=== PATIENT | male | born 1960 | race Caucasian/White ===

== ENCOUNTER 2020-07-21 20:43 | Observation (INO) | payer OTHER ==
[~2020-07-21] VITALS: Ht 180.3 cm; Wt 101.2 kg
[2020-07-21 20:47] VITALS: BP 171/124
[2020-07-21] MEDS ORDERED: NS 1000ML 1,000 ML IV STA (20:58)
[2020-07-21] MEDS ORDERED: ZOFRAN IV STA (20:58)
[2020-07-21] MEDS ORDERED: ASPIRIN PO PRN (21:00)
[2020-07-21] MEDS ORDERED: ZOFRAN ONE (21:01)
[2020-07-21] MEDS ORDERED: NS 1000ML 1,000 ML ONE ×2 (21:01→22:18)
[2020-07-21] MEDS ORDERED: ASPIRIN ONE (21:01)
[2020-07-21] MEDS ORDERED: ATIVAN IV STA (21:02)
--- NOTE | 2020-07-21 21:02 | PCM.EKG ---
[facility] Test Date: 2020-07-21 Test Time: 20:39:54 Pat Name: NILSA JASSO Department: Room: 330 Gender: M Box Sorter: KIKE : 1960 Requested By: MARCO ANTONIO MENG Order Number: [id number] Reading MD: Tahmina Meng Measurements Intervals [place] Rate: 98 P: 14 ME: 177 QRS: -66 QRSD: 101 T: 41 QT: 369 QTc: 472 Interpretive Statements Sinus rhythm Left anterior fascicular block Abnormal R-wave progression, early transition Baseline wander in lead(s) V2,V6 No previous ECG available for comparison Electronically Signed On 07-24-2020 7:12:09 CDT by Tahmina Meng Please click the below link to view image of tracing.
--- NOTE | 2020-07-21 21:06 | ER.PDOC ---
General Chief Complaint: Chest Pain-Cardiac Nature Stated Complaint: CHEST PAIN Time seen by MD: 21:01 Source: patient Exam Limitations: no limitations History of Present Illness Initial Comments Patient c/o intermittent chest pain x 2 weeks. Pain is associated with palpitations (racing heart), light-headedness and nausea. At worse, pain is 7- 10. At this moment pain is gone, relieved by vomiting. Timing/Duration: 1 hour, intermittent (x 2 weeks), resolved prior to arrival Severity/Quality: moderate, severe, aching Radiation: arms (left) Activities at Onset: none Prior CP/Workup: No Prior Chest Pain, No Prior Cardiac Workup Nitro Today/Relief: No Nitro Taken Today Aspirin Today: No Aspirin Today Associated Symptoms: dizziness, nausea/vomiting Allergies: Coded Allergies: No Known Allergies (Unverified , 07/21/20) Past Medical History Medical History: hypertension, other (polycythemia) Surgical History: shoulder Family History Significant Family History: heart disease (all siblings have CAD with stents) Social History Smoking: non-smoker Alcohol Use: sober Drug Use: none Constitutional: no symptoms reported EENTM: no symptoms reported Respiratory: no symptoms reported Cardiovascular: see HPI, chest pain Gastrointestinal: nausea, vomiting Genitourinary: no symptoms reported Musculoskeletal: no symptoms reported Skin: no symptoms reported Psychiatric/Neurological: no symptoms reported Physical Exam General Appearance: WD/WN, Anxious (tearful) Respiratory: lungs clear, normal breath sounds, no respiratory distress, no accessory muscle use Cardiovascular: Regular Rate, Rhythm, No Murmur Gastrointestinal: Normal Bowel Sounds, No Pulsatile Mass, Soft, Tenderness (RUQ) Extremities: No Pedal Edema, No Calf Tenderness Neurologic/Psychiatric: Alert, Normal Mood/Affect, Oriented x 3 Skin: Normal Color, Warm/Dry Results/Orders Results/Orders Vital Signs Date Time Temp Pulse Resp B/P (MAP) Pulse Ox O2 Delivery O2 Flow Rate FiO2 07/21/20 20:47 97.9 101 20 171/124 (140) 99 Room Air 07/21/20 20:47 97.9 101 20 07/21/20 20:47 97.9 101 20 99 Progress Progress first cardiac markers are negative EKG/XRAY/CT/US EKG: NSR, no ST T wave changes XRAY: chest (normal) Consult/PCP Time Consult/PCP Called: 21:58 Consult/PCP: DR. Webb Reason/Comments: left mssg #2 Time Consult/PCP Called: 22:04 Consult/PCP: Dr. Webb Reason/Comments: will admit observation ER DEPART Departure Time of Disposition: 22:00 Disposition: 09 ADMITTED INPATIENT (observation) Impression: Primary Impression: Chest pain Additional Impression: Helicobacter pylori gastritis Condition: Improved Referrals: PCP,UNKNOWN (PCP) PRIMARY CARE PROVIDER Duration or Time Spent with Pa: 25 min Problem Qualifiers Primary Impression: Chest pain Chest pain type: precordial pain Qualified Codes: R07.2 - Precordial pain MARCO ANTONIO HENDRIX DO Jul 21, 2020 21:06
[2020-07-21] MEDS ORDERED: NITRO-BID TD ONE (21:11)
[2020-07-21] MEDS ORDERED: NITRO-BID TD STA (21:12)
--- NOTE | 2020-07-21 21:16 | DIREP ---
PROCEDURE:CHEST 1 VIEW COMPARISON:[facility], CR, XRAY CHEST 2 VWS, 06/30/2016, 03:39 PM. INDICATIONS:chest pain FINDINGS: LUNGS/PLEURA:No significant pulmonary parenchymal abnormalities. No effusions. VASCULATURE:Normal. Unremarkable pulmonary vasculature. CARDIAC:Normal. No cardiac silhouette abnormality or cardiomegaly. MEDIASTINUM:Normal. No visible mass or adenopathy. BONES:Normal. No fracture or visible bony lesion. OTHER:Negative. CONCLUSION: 1. No active cardiopulmonary disease demonstrated. No change noted since 06/30/2016. Dictated by: Jairon Martel M.D. on 07/21/2020 at 09:14 PM
[2020-07-21 21:19] LABS: BASOPHIL % 0.3 % (0.0-0.2); EOSINOPHIL % 0.5 % (0.0-5.0); LYMPHOCYTES # 0.91 10^3/uL1 (1.0-4.8); LYMPHOCYTES % 13.9 % (24.0-44.0); MEAN CORP HGB 31.4 pg (26-34); MONOCYTES # 0.6 10^3/uL (0.3-0.8); MONOCYTES % 8.4 % (5.0-12.0); NEUTROPHILS % 76.7 % (41.0-85.0); PLATELET COUNT 269 10^3/uL (150-400); RED CELL DISTRIBUTION WIDTH 11.9 % (11.5-14.5)
[2020-07-21 21:55] LABS: ALANINE AMINOTRANSFERASE(ML) 18 U/L (12-78); ALKALINE PHOSPHATASE 42 U/L (50-136); ASPARTATE AMINO TRANSFERASE 22 U/L (0-35); CARBON DIOXIDE 22.3 mmol/L (20.0-32); GLUCOSE 128 mg/dL (70-110)
[2020-07-21] MEDS ORDERED: TRANDATE IV STA (21:58)
[2020-07-21] MEDS ORDERED: TRANDATE IV ONE (22:15)
--- NOTE | 2020-07-21 22:25 | NUR ---
NS PER VERBAL ORDER 1L NS HUNG AT THIS TIME.
--- NOTE | 2020-07-21 22:29 | NUR ---
HOME MEDS PT NOT SURE THE NAMES OF HOME MEDS. STATES "I TAKE 2 FOR BLOOD PRESSURE. ONE FOR SLEEPING THAT DOESN'T WORK. I TAKE ONE FOR CRYING BUT IT DOESN'T WORK EITHER."
[2020-07-21] MEDS ORDERED: TRANDATE IV PRN (22:30)
[2020-07-21 22:39] VITALS: BP 135/96
--- NOTE | 2020-07-21 22:48 | NUR ---
REPORT CALLED TO SUSY ESCOBEDO AT THIS TIME.
[2020-07-21 23:05] VITALS: BP 142/106
[2020-07-22] MEDS ORDERED: MORPHINE SULFATE IV PRN
[2020-07-22] MEDS: NITROSTAT SL PRN ×3 (00:13→00:25)
[2020-07-22] MEDS: PROTONIX PO SCH ×2 (00:17→08:39)
--- NOTE | 2020-07-22 02:53 | NUR ---
VOMIT PT VOMITED AND STATED THAT HIS CHEST KIND OF HURT UPON ASKING THE PT WHERE HIS CHEST HURT AND WHAT IT FELT LIKE HE POINTED TO HIS STERNUM AND SAID IT CRAIG.
[2020-07-22] MEDS ORDERED: TYLENOL PO PRN (03:30)
[2020-07-22] MEDS ORDERED: LOVENOX SQ SCH (03:30)
[2020-07-22] MEDS ORDERED: ZOFRAN IV PRN (03:30)
[2020-07-22 04:37] VITALS: BP 109/75
[2020-07-22] MEDS: NS 1000ML 1,000 ML IV SCH ×2 (04:40→16:50)
[2020-07-22 05:18] LABS: BASOPHIL % 0.4 % (0.0-0.2); EOSINOPHIL % 0.6 % (0.0-5.0); LYMPHOCYTES # 0.74 10^3/uL1 (1.0-4.8); MEAN CORP HGB 31.7 pg (26-34); MONOCYTES # 0.4 10^3/uL (0.3-0.8); MONOCYTES % 8.3 % (5.0-12.0); NEUTROPHILS % 76.3 % (41.0-85.0); PLATELET COUNT 216 10^3/uL (150-400); RED CELL DISTRIBUTION WIDTH 11.9 % (11.5-14.5)
[2020-07-22 05:38] LABS: CALCIUM 8.4 mg/dL (8.4-10.5); CARBON DIOXIDE 25.6 mmol/L (20.0-32)
[2020-07-22 08:03] VITALS: BP 109/73
[2020-07-22] MEDS ORDERED: KCL 20MEQ/100ML 200 ML IV ONE (09:00)
[2020-07-22] MEDS ORDERED: ASPIRIN EC PO SCH (09:00)
[2020-07-22] MEDS ORDERED: MAGNESIUM SULFATE 50 ML IV ONE (09:00)
[2020-07-22] MEDS ORDERED: ZOLP10TA PO (11:48)
[2020-07-22] MEDS ORDERED: LISI-410 PO ×2 (11:48→19:25)
[2020-07-22] MEDS ORDERED: RUXO20TA PO (11:48)
[2020-07-22] MEDS ORDERED: CARV12.52 PO (11:48)
--- NOTE | 2020-07-22 13:02 | NUR ---
Pt off of unit at this time for stress test.
--- NOTE | 2020-07-22 13:27 | PCM.ECHO ---
APPROVED REPORT EXAM: Comprehensive 2D, Doppler, and color-flow Echocardiogram. Patient Location: IN-PATIENT Rhythm: NSR Indications Chest Pain 2D Dimensions LVOT Diameter 2.35 (1.8-2.4cm) LVEF(%) 58.65 (>50%) M-Mode Dimensions RVDd 1.60 (2.1-3.2cm) Left Atrium(MM) 4.10 (2.5-4.0cm) IVSd 0.95 (0.7-1.1cm) Aortic Root 4.00 (2.2-3.7cm) LVDd 5.05 (4.0-5.6cm) Aortic Cusp Exc 1.80 (1.5-2.0cm) PWd 0.70 (0.7-1.1cm) MV EPSS 0.54 (<0.5cm) IVSs 1.45 cm FS (%) 30.75 % LVDs 3.50 (2.0-3.8cm) ESV(Teich) 50.91 ml PWs 1.40 cm LVEF(%) 58.07 (>50%) Volumes Biplane 2D LV Volumes Biplane 2D LA Volumes LVEDv A4C 117.34 mL LA ESV Index LVESv A4C 48.52 mL Aortic Valve AoV Peak Amol. 0.95 m/s AoV VTI 22.00 cm AO Peak GR. 3.75 mmHg AO Mean GR. 2.70 mmHg LVOT VTI 25.74 cm LVOT Peak Amol. 0.87 m/s DEMETRICE(VTI)/BSA 5.07 cm2/m2 DEMETRICE (VTI) 5.07 cm2 Mitral Valve MV E Velocity 0.75m/s MR Peak Gr. 3.95mmHg MV A Velocity 0.85m/s TDI Lateral E' P. V 0.08m/s Medial E' P. V 0.06m/s Pulmonary Valve PV Peak Velocity 0.75m/s PV Peak Grad. 2.40mmHg RVOT VTI 17.88cm Tricuspid Valve TR P. Velocity 1.50m/s RAP ESTIMATE 10.00mmHg TR Peak Gr. 9.54mmHg RVSP 19.54mmHg LEFT VENTRICLE The left ventricle is normal size. The left ventricular systolic function is normal. The left ventricular ejection fraction is within the normal range. There is normal left ventricular wall thickness. There is normal LV segmental wall motion. There is no ventricular septal defect visualized. No left ventricle thrombus noted on this study. LVEF is 60-65%. RIGHT VENTRICLE The right ventricle is normal size. The right ventricular systolic function is normal. There is normal right ventricular wall thickness. ATRIA The left atrium size is normal. The right atrium size is normal. The interatrial septum is intact with no evidence for an atrial septal defect. AORTIC VALVE The aortic valve is normal in structure. There is no aortic valvular stenosis. No aortic regurgitation is present. There is no aortic valvular vegetation. MITRAL VALVE The mitral valve is normal in structure. There is no mitral valve stenosis. Mild mitral regurgitation. There is no evidence of mitral valve vegetations. TRICUSPID VALVE The tricuspid valve is normal in structure. There is no tricuspid valve stenosis. Mild tricuspid regurgitation. There is no tricuspid valve vegetations. PULMONIC VALVE Pulmonic valve is not well visualized. There is no pulmonic valvular stenosis. There is no pulmonic valvular regurgitation. GREAT VESSELS The aortic root is normal in size. Pulmonary artery is not well visualized. Aortic arch is not well visualized. IVC is not well visualized. PERICARDIUM There is no pericardial effusion. There is no pleural effusion. Other Information Study Quality: Fair <Conclusion> The left ventricular systolic function is normal. LVEF is 60-65%. Mild mitral regurgitation. Mild tricuspid regurgitation. Electronically signed by : DAVID BUSTILLO. 07/22/2020 13:27:26
[2020-07-22] MEDS ORDERED: LEXISCAN IV ONE (13:30)
--- NOTE | 2020-07-22 14:15 | NUR ---
DISCHARGE PLAN CASE MANAGEMENT VISITED WITH PATIENT AT BEDSIDE CONCERNING DISCHARGE PLAN AND NEEDS. LIVES AT HOME ALONE IN [place]. INDEPENDENT OF ADLS. VERBALLY DENIES NEED FOR SERVICES, DME, OR HOME O2. PCP IS MAGEN RUELAS IN [place]. DR. MEDRANO IS HIS BITE BLOCK MAKER. DISCHARGE GOAL IS TO DC HOME AND CONTINUE SELF CARE. CM WILL CONTINUE TO FOLLOW FOR DC NEEDS. CONTACT INFORMATION LEFT AT BEDSIDE.
--- NOTE | 2020-07-22 14:15 | NUR ---
Pt back on unit at this time
[2020-07-22 14:41] VITALS: BP_SYST 122; BP_SYST 128; BP_DIAS 80; BP_DIAS 96
[2020-07-22] MEDS: APRESOLINE PO SCH ×2 (14:57→21:07)
--- NOTE | 2020-07-22 15:07 | NUR ---
MEDICATIONS Pt nephew to bring home medication dose of Jackafi. Our pharmacy does not carry that medication. Pt to take own dose.
--- NOTE | 2020-07-22 19:20 | CNH ---
DATE OF CONSULTATION: 07/22/2020 REASON FOR CONSULTATION: Chest pain/hypertensive emergency. HISTORY OF PRESENT ILLNESS: This is a 59-year-old male who presented to the Emergency Department with symptoms of chest discomfort, which he has been experiencing for the last 2 weeks, but has progressively gotten worse. He admits to associated shortness of breath and palpitations. He also experienced symptoms of lightheadedness, numbness of the left upper extremity as well as nausea. On presentation to the ED, his blood pressure was noted to be 171/124. He has a history of uncontrolled blood pressure and states that he was recently at an urgent care center where he was told his blood pressure was significantly elevated. He takes Coreg 12.5 mg p.o. b.i.d. as well as lisinopril 20 mg p.o. daily for blood pressure control. He does have risk factors for coronary artery disease including a family history of premature CAD, hypertension, and age. He denies any recent cardiac ischemic workup. PAST MEDICAL HISTORY: Noted for: 1. Hypertension. 2. Polycythemia rubra vera. PAST SURGICAL HISTORY: Shoulder surgery. ALLERGIES: He has no known drug allergies. MEDICATIONS: He takes at home includes lisinopril 20 mg daily, Coreg 12.5 mg p.o. b.i.d., zolpidem 10 mg at bedtime p.r.n., and ruxolitinib phosphate 20 mg daily. SOCIAL HISTORY: Denies alcohol use, denies tobacco use, denies illicit drug use. FAMILY HISTORY: Admits to family history of premature CAD, but denies sudden cardiac . REVIEW OF SYSTEMS: All systems reviewed and negative for interval change. PHYSICAL EXAMINATION: VITAL SIGNS: Blood pressure is currently 109/73 with a respiratory rate of 18, pulse is 67 beats per minute, temperature 97.9, pulse ox is 96% on room air. GENERAL: He is in no apparent distress, alert and oriented x 3. HEENT: Normocephalic, atraumatic. Extraocular muscles intact. Pupils are equally round and reactive to light and accommodation. HEART: S1, S2. No gallops, murmurs, rubs, or clicks. LUNGS: Clear to auscultation bilaterally. No wheezing, rhonchi or rales. ABDOMEN: Soft, nontender, nondistended. Positive bowel sounds in all 4 quadrants. EXTREMITIES: No cyanosis, no clubbing, no edema, +2 pedal pulses palpable bilaterally. NEUROLOGIC: No neurological deficits. Sensation is intact. IMPRESSION: 1. Chest pain, rule out acute coronary syndrome. 2. Hypertensive emergency. 3. Known history of uncontrolled hypertension. 4. Family history of premature coronary artery disease. 5. Polycythemia rubra vera. RECOMMENDATIONS: This is a 59-year-old male who presented to the Emergency Room with symptoms of chest discomfort with associated shortness of breath and palpitations. On presentation to the ED, he was noted to have uncontrolled blood pressure of 171/124. EKG done on presentation shows normal sinus rhythm with a left anterior fascicular block. No evidence of myocardial ischemia on ECG. Troponins are currently negative x 3. He does have risk factors for CAD including a family history of premature CAD, hypertension, and his age. In view of these, he will be set up for cardiac ischemic workup including a Lexiscan nuclear stress test to rule out myocardial ischemia as well as a 2D echo to evaluate his left ventricular ejection fraction and structural integrity of his heart. His blood pressure needs to be better controlled and so I am going to increase his lisinopril to 40 mg daily and start him on hydralazine 50 mg p.o. b.i.d. in addition to his home blood pressure medications. He will be kept on telemetry floor for now, and further recommendations will be made based on the results from testing as well as his overall clinical course. DAVID BUSTILLO D.O. : ZEINAB/tawnya JOB# [id number]
[2020-07-22 19:21] VITALS: BP 130/91
[2020-07-22] MEDS ORDERED: ASPI-929 PO (19:25)
[2020-07-22] MEDS ORDERED: PANT40TA3 PO (19:25)
[2020-07-22] MEDS ORDERED: HYDR-3194 PO (19:25)
[2020-07-22 19:46] VITALS: BP 130/91
[2020-07-22] MEDS ORDERED: COREG PO SCH (21:00)
--- NOTE | 2020-07-22 21:15 | NUR ---
DISCHARGE DISCONTINUED IV TIP INTACT. INSTRUCTED PATIENT REGARDING MEDS TO CONTINUE AT HOME, NEW MEDS AND MEDS TO DISCONTINUE. PATIENT RECEIVE VISIT REPORT FORMS, ANGINA INFORMATION, AND MEDICATION INFORMATION. PATIENT IS TO FOLLOW UP WITH DR BUSTILLO IN 2-3 WEEKS, AND FOLLOW UP WITH PCP IN 5-7 DAYS AND TO KEEP SCHEDULED APPOINTMENTS WITH DR MEDRANO. PT IS TO MONITOR AND RECORD BP AT LEAST DAILY AND WHEN HE IS HAVING CHEST PAIN. PATIENT WAS INSTRUCTED TO TAKE THE RECORD WITH HIM TO DOCTOR APPOINTMENTS. PATIENT VOICED UNDERSTANDING. PATIENT WAS TAKEN VIA WHEELCHAIR TO ER EXIT. PATIENT'S NEPHEW ARRIVED TO PICK HIM UP AND I ASSISTED PATIENT INTO VEHICLE.
--- NOTE | 2020-07-22 22:28 | STRESS ---
DATE OF SERVICE: 07/22/2020 INDICATION: Chest pain. Baseline EKG shows normal sinus rhythm with a left anterior fascicular block. Stress EKG shows sinus tachycardia, unchanged from baseline. At recovery, EKG shows normal sinus rhythm, unchanged from baseline. Baseline blood pressure is noted to be 126/97 and remained the same during stress. At recovery, the blood pressure was 138/101. Baseline heart rate is 91 beats per minute and rahul to 103 beats per minute during stress. At recovery, the heart rate was 92 beats per minute. Blood pressure and heart rate were appropriate for stress. There were no significant symptoms noted during stress. There were no arrhythmias noted during stress. EKG portion of stress test is negative for myocardial ischemia. Nuclear images reveal homogeneous tracer distribution across all wall segments visualized in prone stress images with no evidence of myocardial ischemia or infarction. Left ventricular ejection fraction is 80%. EDV 67 mL, ESV is 14 mL. The left ventricle is normal in size. Gated motion images show normal wall motion across all segments of the left ventricle. TID is 1.29. There is no evidence of diaphragmatic attenuation artifact. IMPRESSION: 1. Normal myocardial perfusion imaging as visualized on prone stress images with no evidence of myocardial ischemia or infarction. 2. Left ventricular ejection fraction of 80%. 3. This is a negative study. DAVID BUSTILLO D.O. DR: ZEINAB/tawnya JOB# [id number]
[2020-07-23] MEDS ORDERED: ZESTRIL PO SCH ×2 (09:00)
--- NOTE | 2020-07-26 06:40 | PCM.HP ---
HISTORY & PHYSICAL HISTORY & PHYSICAL DATE OF ADMISSION: 07/21/20 TIME: 11:55pm CHIEF COMPLAINT: Chest pain HISTORY OF PRESENT ILLNESS: Mr Villa is a 59yo WM who presents to the [facility] ED complaining of worsening left-sided chest pain for the past 2 weeks. Pt describes the pain as an intermittent "pressure" sensation that radiates down his left arm causing numbness. It is associated with some light-headedness, SOB, palpitations, nausea, and vomiting; but no cough, congestion, abdominal pain, diarrhea, fever, chills, or syncopal episodes. Patient admits to being under a "huge amount of stress lately" with frequent crying spells and inability to sleep at night. Currently at this time, he is chest pain free and his only complaint is a mild headache from the Nitroglycerin. Juan Antonio and EKG done in the ED have been negative so far. PAST MEDICAL HISTORY: "Sleep Disorder", HTN, Polycythemia Vera PAST SURGICAL HISTORY: Right Shoulder Surgery, Right Tib/Fib Surgery, Tonsillectomy SOCIAL HISTORY: Pt does not smoke, drink, or use recreational drugs. He is not working at this time. FAMILY HISTORY: Mother from an unknown cause in her 70s. Father was never known to Pt. Brothers x 2 with CAD s/p stents in their 60s. Sister "viridiana fairbanks being worked up for heart disease" in her 60s. ALLERGIES: NKDA HOME MEDICATIONS: See Home Med Rec REVIEW OF SYSTEMS: See HPI above. All other ROS negative including constitutional, eyes, ears, nose, throat, respiratory, cardiovascular, gastrointestinal, genitourinary, musculoskeletal, skin, neurological, psychiatric, and lymphatic. PHYSICAL EXAMINATION: VITAL SIGNS: T 97.1, HR 83, RR 18, BP 142/106, O2 sat 93% RA GENERAL: Resting comfortably in NAD. No family or friends present at bedside. HEENT: NC/AT. PERRLA. EOMI. MMM. Neck is supple. LUNGS: CTAB. No wheezing, rales or rhonchi. No sign of respiratory distress or cyanosis. HEART: Normal S1S2. No murmurs, rubs, gallops, or thrills. ABDOMEN: Soft. ND. NTTP. No rebound or guarding. Normal BS throughout. EXTREMITIES: No pitting edema. NEUROLOGIC: AAOx3. Moving all 4 extremities equally and completely off the bed. Sensation intact. Gait was not assessed at this time. LABORATORY DATA: Reviewed and significant for Na 128, K 3.4, Cl 94, Gluc 128, T bili 1.1, TPN <0.02, proBNP 88, D-dimer 0.23, Hpylori Screen + IMAGING STUDIES: 1) CXR: No active cardiopulmonary disease demonstrated. ASSESSMENT / PLAN: 1) Chest pain R/O ACS: Will admit overnight for observation on telemetry, serial Juan Antonio, echocardiogram, and stress test in the morning. 2) HTN uncontrolled: Pt's BP upon arrival to the ED was 171/124. Likely exacerbated by stress, anxiety, pain, and lack of sleep. Will resume Pt's home meds and give Labetolol IV PRN. 3) Hyponatremia: Pt reports that he was placed on "salt tabs" in the past for low sodium levels. Will check urine studies and monitor closely. 4) Hyperglycemia: Will check HgbA1c. 5) ?Depression: Pt clinically appears to be very depressed. Encouraged him to follow up with his PCP for Psychiatry referral in the near future. He denies HI/SI at this time. 6) H pylori screen+: Since IgG is +, will go ahead and check IgM and IgA to determine if this is an acute infection. 7) Polycythemia Vera: Resume home med and follow up with Dr Zhou PRN. 8) GI and DVT prophylaxis: Will start Protonix and Lovenox. AMY MILNER MD Jul 26, 2020 06:40
--- NOTE | 2020-07-26 07:23 | PRM.DC ---
DISCHARGE SUMMARY Y DATE OF ADMISSION: 07/21/20 DATE OF DISCHARGE: 07/22/20 FINAL DISCHARGE DIAGNOSES: 1) Chest pain: ACS was ruled out with negative Juan Antonio, EKG, Echo, and stress test. Exact etiology is still unclear and Pt will need close outpt follow up with his PCP. 2) HTN uncontrolled: Improved after Pt's home BP meds were adjusted. 3) Hyponatremia: Improved. Pt does report being placed on "salt tabs" in the past for low sodium levels. He will need to follow up with his PCP. 4) Hyperglycemia: Likely stress-induced. HgbA1c was only 6.0. 5) ?Depression: Pt clinically appears to be very depressed. Encouraged him to follow up with his PCP for Psychiatry referral in the near future. He denies HI/SI at this time. 6) H pylori screen+: Since IgG is +, IgM and IgA was checked to determine if there is an acute infection. These tests are still pending, and Pt will need to follow up with his PCP for the results. 7) Polycythemia Vera: Pt was encouraged to follow up with his HemOnc Dr Zhou as previously arranged. CONSULTS: Dr Araiza with Cardiology HISTORY & BRIEF HOSPITAL COURSE: Mr Villa is a 59yo WM who presented to [facility] ED complaining of worsening left- sided chest pain for the past 2 weeks. Pt was admitted overnight and monitored closely on telemetry. He also had serial Juan Antonio, EKG, echocardiogram, and stress test done that were all negative. It was felt that patient's stress, anxiety, depression, and lack of sleep was all contributing to his symptoms. Patient was encouraged to follow up with his PCP for Psychiatry referral in the near future. PHYSICAL EXAMINATION: VITAL SIGNS: T 98, HR 81, RR 18, BP 130/91, O2 sat 97% RA GENERAL: Resting comfortably in NAD. No family or friends present at bedside. HEENT: NC/AT. PERRLA. EOMI. MMM. Neck is supple. LUNGS: CTAB. No wheezing, rales or rhonchi. No sign of respiratory distress or cyanosis. HEART: Normal S1S2. No murmurs, rubs, gallops, or thrills. ABDOMEN: Soft. ND. NTTP. No rebound or guarding. Normal BS throughout. EXTREMITIES: No pitting edema. NEUROLOGIC: AAOx3. Moving all 4 extremities equally and completely off the bed. Sensation intact. Gait was not assessed at this time. DISCHARGE CONDITION: Stable DISPOSITION: DC'd home MEDICATIONS: See Med Rec INSTRUCTIONS TO PT: 1) Diet: Regular as tolerated. 2) Activity: As tolerated. 3) Monitor BP at home and record in a log for PCP. FOLLOW UP: 1) PCP in 5-7 days, or sooner as needed. 2) Dr Araiza in 2-3 weeks. 3) Dr Zhou as previously arranged. AMY MILNER MD Jul 26, 2020 07:23
== END 2020-07-22 21:15 | disposition home or self-care (01) ==
LOC: ER 20:43 → MS 22:14
PROVIDERS: ADMIT Family Medicine; ATTEND Family Medicine
DX: R07.89 Other chest pain (principal); K29.70 Gastritis, unspecified, without bleeding; B96.81 Helicobacter pylori [H. pylori] as the cause of diseases classified elsewhere; I10 Essential (primary) hypertension; I16.1 Hypertensive emergency; D45 Polycythemia vera; Z82.49 Family history of ischemic heart disease and other diseases of the circulatory system; Z79.899 Other long term (current) drug therapy
CPT/HCPCS: 36415 ×2; 71045; 78452; 80053 ×2; 80307; 82550 ×4; 82553 ×4; 82570; 83036; 83735; 83880; 83930; 83935; 84100; 84300; 84443; 84484 ×4; 85025 ×2; 85379; 85610; 85730; 86677 ×3; 93005; 93017; 93306; 96361 ×2; 96365; 96372; 96375; 96376; 99285; A9150; A9500; G0378 ×3; J1650; J2060; J2405 ×2; J2785; J3475; J7030 ×3; J3480; J3490